=== PATIENT | male | born 1990 ===

== ENCOUNTER 2023-03-01 15:44 | Outpatient (CLI) | payer OTHER ==
--- NOTE | 2023-03-01 17:11 | MRI Report ---
PROCEDURE: ANKLE WO - RT INDICATIONS: ACHILLES TENDINITIS TECHNIQUE: Noncontrast sagittal T1 spin echo and T2 fast spin echo with fat saturation, axial proton density fas t spin echo and T2 fast spin echo with fat saturation, coronal T1 spin echo and T2 fast spin echo wit h fat saturation through the ankle/hindfoot. COMPARISON: None. FINDINGS: Image quality: Excellent. Bones and joints: No bone marrow contusions or fractures. No hindfoot coalitions. No osteochondral injuries of the talar dome. No pathologic joint effusions. Medial structures: The posterior tibialis tendon is markedly thickened with intrasubstance T2 hyperi ntense signal and moderate amount of fluid distending tendon sheath at the level of distal talus and talar navicular joint. The flexor digitorum longus, and flexor hallucis longus tendons are intact. T he posterior tibial neurovascular bundle appears normal within the tarsal tunnel, without extrinsic m ass effect. The deltoid ligament and spring ligament are thickened. Lateral structures: The anterior talofibular, calcaneofibular, and posterior talofibular ligaments a ppear intact. More superiorly, the anterior and posterior tibiofibular ligaments appear normal, as i s the intermalleolar ligament. The tibiofibular syndesmosis is normal in width at 2 mm or less. The peroneus longus and brevis tendons demonstrate normal location and morphology. Adjacent bony perone al tubercle and retrotrochlear prominence are normal in size. The sinus tarsi demonstrates normal fa tty signal, without edema, fibrosis, or cyst formation. Visualized sinus tarsi components (cervical ligament, interosseous talocalcaneal ligament, roots of the inferior extensor retinaculum) appear nor mal. Anterior structures: The tibialis anterior, extensor hallucis longus, and extensor digitorum longus tendons appear intact. Posterior and plantar structures: There is moderate thickening of Achilles tendon extending to its po sterior calcaneal insertion with subtle intrasubstance T2 hyperintense signal. Medial and lateral ban ds of the plantar fascia are of normal thickness. No abductor digiti quinti muscle atrophy to sugges t Knapp neuropathy. IMPRESSION: 1. 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 N o Achilles tendon rupture. 2. Moderate tenosynovitis involving posterior tibialis tendon as above. 3. No marrow edema. No fracture or dislocation. No osteochondral injuries of talar dome. 4. Low-grade medial ankle ligament sprain. Reviewed by: Alfredo Hunt MD on 03/01/2023 5:09 PM PDT Approved by: Alfredo Hunt MD on 03/01/2023 5:09 PM PDT Station ID: [id number]
== END 2023-03-01 15:45 | disposition home or self-care (01) ==
LOC: DI 15:44
PROVIDERS: ATTEND Student in an Organized Health Care Education/Training Program
DX: M76.61 Achilles tendinitis, right leg (principal); M65.9 Synovitis and tenosynovitis, unspecified; S93.491A Sprain of other ligament of right ankle, initial encounter